=== PATIENT | male | born 1955 | race African-American/Black ===

== ENCOUNTER → 2016-09-18 | Outpatient (CLI) | payer OTHER, MEDICARE ==
--- NOTE | ~2016-09-18 | MR164 ---
[facility] A Service of [facility] & [facility] [place] RADIOLOGY TEXT RESULTS PATIENT: BROOKE LARKIN LOCATION: [facility] : 55 UNIT #: [id number] AGE: [address]: Vidal Jo MD SEX: M ORDER DR: [id number] [facility] [address] [place], [place] [address] [id number] O MR#: [id number] Acc #: [id number] NAME: BROOKE LARKIN. : 1955 SEX: M STUDY DATE/TIME: 09/18/2016 10:24 UNIT: [facility] ROOM: STUDY DESCRIPTION: MR Shoulder Wo Contrast Lt Attending Physician: Vidal Jo M.D. Ordering Physician: Vidal Jo M.D. Primary Care Physician: Vidal Jo M.D. MRI CENTER REPORT This report is preliminary unless electronic signature is present. EXAM Left shoulder MRI without contrast 09/18/2016 HISTORY 61-year-old male with left shoulder pain for 1 month. No recent injury. No prior left shoulder surgery COMPARISON Left shoulder MRI 05/21/2005. Left shoulder x-rays 09/16/2016. TECHNIQUE Routine unenhanced multiplanar, multisequence high field MR imaging of the left shoulder was performed. FINDINGS There is ydez-[id number]-ytydxfrq supraspinatus and infraspinatus tendinopathy. There is some minimal partial thickness undersurface fraying of the insertional infraspinatus tendon. This involves less than 25% of the tendon thickness. Teres minor and subscapularis tendons are intact. Long biceps tendon is intact and well positioned bicipital groove. No evidence of a labral tear. Glenohumeral articular cartilage is intact. No glenohumeral effusion. Acromioclavicular joint is within expected limits. No subacromial spur. There is mild inflammation subacromial/subdeltoid bursa. Bone marrow signal is otherwise within normal limits. Visualized musculature is unremarkable. IMPRESSION 1. [id number] supraspinatus and infraspinatus tendinopathy. There is minimal partial thickness undersurface fraying of the insertional STS. [facility] A Service of [facility] & [facility] [place] RADIOLOGY TEXT RESULTS PATIENT: BROOKE LARKIN LOCATION: [facility] : 55 UNIT #: [id number] AGE: [address]: Vidal Jo MD SEX: M ORDER DR: infraspinatus tendon. However, this involves less than 25% of the tendon thickness. No evidence of a high-grade partial-thickness or full-thickness rotator cuff tear. 2. No significant labral pathology. 3. Mild inflammation subacromial/subdeltoid bursa. Dictated by... Mehdi Dumont M.D. THIS IS AN ELECTRONICALLY VERIFIED REPORT Mehdi Dumont M.D. at 09/19/2016 8:09 AM Socrates TD: 09/19/2016 07:30 JOB #: [id number] MRI CENTER REPORT Page 1 of 1 COPY
== END | disposition home or self-care (01) ==
LOC: CMRI 09:52
DX: M25.512 Pain in left shoulder (principal); R20.0 Anesthesia of skin; R20.2 Paresthesia of skin; M75.52 Bursitis of left shoulder; M75.82 Other shoulder lesions, left shoulder
CPT/HCPCS: 73221